=== PATIENT | female | born 1935 | race Caucasian/White ===

== ENCOUNTER 2018-01-22 11:15 | Emergency (ER) | payer MEDICARE ==
[2018-01-22] MEDS: KETOROLAC 15 MG INJ IM (13:11)
== END 2018-01-22 14:42 | disposition home or self-care (01) ==
LOC: FTE 14:42
DX: S32.030A Wedge compression fracture of third lumbar vertebra, initial encounter for closed fracture (principal); W01.0XXA Fall on same level from slipping, tripping and stumbling without subsequent striking against object, initial encounter; Y92.9 Unspecified place or not applicable
CPT/HCPCS: 96372; 99284-25